=== PATIENT | male | born 1995 | race Asian ===

== ENCOUNTER 2019-05-05 18:03 | Emergency (ER) | payer OTHER, BC ==
[~2019-05-05] VITALS: Ht 160 cm; Wt 48.1 kg
[2019-05-05] MEDS ORDERED: CYCL10 PO (20:21)
== END 2019-05-05 20:29 | disposition home or self-care (01) ==
LOC: ER 18:03
DX: S80.212A Abrasion, left knee, initial encounter (principal); S80.211A Abrasion, right knee, initial encounter; S80.812A Abrasion, left lower leg, initial encounter; M54.2 Cervicalgia; V49.9XXA Car occupant (driver) (passenger) injured in unspecified traffic accident, initial encounter; F17.200 Nicotine dependence, unspecified, uncomplicated
CPT/HCPCS: 99283